=== PATIENT | male | born 1980 | race Caucasian/White ===

== ENCOUNTER 2019-11-20 19:50 | Emergency (ER) | payer OTHER ==
--- NOTE | 2019-11-20 20:58 | RADIOLOGY REPORT (SQ) ---
CLINICAL INDICATION: bone pain. . TECHNIQUE: 2 view(s) were obtained of the right ankle. COMPARISON: None. FINDINGS: No acute displaced fracture is identified of the ankle. Alignment appears anatomic. Joint spaces are within normal limits for age. Soft tissue swelling. IMPRESSION: No evidence of acute displaced fracture of the ankle.
--- NOTE | 2019-11-20 20:58 | RADIOLOGY REPORT (SQ) ---
CLINICAL INDICATION: bone pain. . TECHNIQUE: 2 view(s) were obtained of the right foot. COMPARISON: None. FINDINGS: No acute displaced fracture is identified of the foot. Alignment appears anatomic. Joint spaces are within normal limits for age. Soft tissue swelling. Old posttraumatic change IMPRESSION: No evidence of acute displaced fracture of the foot.
--- NOTE | 2019-11-20 21:36 | ER Document Report ---
HPI - HPI Time Seen by Provider: 11/20/19 21:19 Pain Level: 3 Context: Patient is a 39-year-old male who presents emergency department with a chief complaint of right ankle pain. Patient states that he was bringing a futon down the stairs and his ankle had rotated medially and he has pain to the lateral aspect of his right ankle. Patient has been using an Merritt wrap and crutches and elevating his ankle. Patient states it continues to hurt. He has been taking 800 mg of ibuprofen as needed, but not routinely. He has history of musculoskeletal problems in the past. - ROS Systems Reviewed and Negative: Yes All other systems reviewed and negative - CONSTITUTIONAL Constitutional: DENIES: Fever, Chills - CARDIOVASCULAR Cardiovascular: DENIES: Chest pain - RESPIRATORY Respiratory: DENIES: Trouble Breathing, Coughing - MUSCULOSKELETAL Musculoskeletal: REPORTS: Extremity pain - Right ankle - DERM Skin Color: Normal Skin Problems: None Past Medical History - General Information source: Patient - Social History Smoking Status: Current Some Day Smoker Family History: Reviewed & Not Pertinent Patient has suicidal ideation: No Patient has homicidal ideation: No Vertical Provider Document - CONSTITUTIONAL Agree With Documented VS: Yes Exam Limitations: No Limitations General Appearance: No Apparent Distress - INFECTION CONTROL TRAVEL OUTSIDE OF THE [place] IN LAST 30 DAYS: No - HEENT HEENT: Atraumatic, Normocephalic, PERRLA - NECK Neck: Normal Inspection - RESPIRATORY Respiratory: No Respiratory Distress - CARDIOVASCULAR Cardiovascular: Regular Rhythm Pulses: Normal: Posterior tibial, Dorsalis pedis - MUSCULOSKELETAL/EXTREMETIES Musculoskeletal/Extremeties: Tender - Right lateral ankle, No Edema. negative: FROM - Decreased right ankle - NEURO Level of Consciousness: Awake, Alert, Appropriate Motor/Sensory: No Motor Deficit, No Sensory Deficit - DERM Integumentary: Warm, Dry, No Rash Course - Re-evaluation Re-evalutation: 11/20/19 21:38 Patient's x-ray does not show any new break. Patient will continue to use crutches. Patient will be given an ankle stirrup to help with comfort. Educated patient on continuing ibuprofen, rest, ice, compression, and elevation. He will follow-up with orthopedics as needed. Dorsalis pedis and posterior tibial pulses 2+. Capillary refill less than 3 seconds. I have very low suspicion for any life-threatening etiology at this time. Follow-up precautions were given. Verbal discharge instructions were given to the patient. They verbalized understanding. They are stable for discharge. - Vital Signs Vital signs: Temp Pulse Resp BP Pulse Ox 97.6 F 127 H 16 183/104 H 97 11/20/19 20:11 11/20/19 19:57 11/20/19 19:57 11/20/19 19:57 11/20/19 19:57 Discharge - Discharge Clinical Impression: Right ankle pain Qualifiers: Chronicity: acute Qualified Code(s): M25.571 - Pain in right ankle and joints of right foot Condition: Stable Disposition: HOME, SELF-CARE Instructions: Merritt Wrap ([facility]), Ankle Stirrup Splint ([facility]), Ice & Elevation ([facility]) Additional Instructions: You are seen today in the emergency department for right ankle pain. Your x-ray does not show any new breaks. Please follow-up with orthopedics if you continue to have pain. Continue to use your crutches. You can use your Mobic if needed. Forms: Elevated Blood Pressure Referrals: AISHWARYA LEÓN MD [ACTIVE STAFF] - Follow up as needed JESUSITA BARNETT MD [ACTIVE PROVISIONAL STAFF] - Follow up as needed DHARMESH ALVARADO JR, DO [ACTIVE PROVISIONAL STAFF] - Follow up as needed
[2019-11-20 22:49] VITALS: BP 147/97
== END 2019-11-20 22:49 | disposition home or self-care (01) ==
LOC: ER 19:50
DX: M25.571 Pain in right ankle and joints of right foot (principal); X50.0XXA Overexertion from strenuous movement or load, initial encounter; F17.210 Nicotine dependence, cigarettes, uncomplicated
CPT/HCPCS: 99283